=== PATIENT | female | born 1970 | race African-American/Black ===

== ENCOUNTER 2022-07-16 14:42 | Emergency (ER) | payer SELFPAY ==
[~2022-07-16] VITALS: Ht 167.6 cm; Wt 91.0 kg
[2022-07-16] MEDS ORDERED: ONDANSETRON HCL 4MG/2ML INJ IV STA (15:27)
[2022-07-16] MEDS ORDERED: MECLIZINE 25MG TABLET PO ONE (15:30)
[2022-07-16] MEDS ORDERED: SODIUM CHLORIDE 0.9% 1,000 ML IV ONE (15:30)
[2022-07-16 16:05] LABS: BASOPHILS % 0.5 % (0.0-2.0); CHLORIDE 110 mEq/L (98-107); EOSINOPHILS % 0.1 % (0.0-5.0); HEMATOCRIT. 35.1 % (36.0-48.0); HEMOGLOBIN. 11.3 g/dL (12.0-16.0); MEAN CORPUSCULAR HEMOGLOBIN 27.5 pg (28.0-32.0); MEAN CORPUSCULAR VOLUME 85.4 fL (81.0-99.0); MEAN PLATELET VOLUME 8.4 fl (7.4-10.4); MONOCYTES % 2.3 % (2.0-8.0); NEUTROPHILS % 81.1 % (40.0-76.0); PLATELET 233 x1000/uL (130-400); RED BLOOD CELL COUNT 4.12 mill/uL (4.2-5.4); RED CELL DISTRIBUTION WIDTH 14.5 % (11.6-14.6)
[2022-07-16 16:10] LABS: HCG SCREEN NEGATIVE
[2022-07-16 18:35] VITALS: BP 135/95
[2022-07-16] MEDS ORDERED: MECL-159 MT (18:57)
[2022-07-16] MEDS ORDERED: ONDA4TAB11 PO (18:57)
== END 2022-07-16 19:25 | disposition home or self-care (01) ==
LOC: ER 14:42
DX: R42 Dizziness and giddiness (principal); J45.909 Unspecified asthma, uncomplicated; I10 Essential (primary) hypertension
CPT/HCPCS: 36415; 80053; 82962; 84703; 85025; 93005; 96361; 96374; 99284; C1893; J2405; J7030; J8597; Z7610